=== PATIENT | female | born 1985 | race Caucasian/White ===

== ENCOUNTER 2021-09-06 08:24 | Day surgery (SDC) | payer MEDICAID ==
[~2021-09-06] VITALS: Ht 157.5 cm; Wt 77.1 kg
[2021-09-06 09:53] LABS: HCG,QUAL RESULT NEGATIVE (NEGATIVE)
[2021-09-06] MEDS ORDERED: MIDAZOLAM HCL 2 MG/2 ML VIAL (VERSED) ONE (11:19)
[2021-09-06] MEDS ORDERED: NS IRRIG SOLN 1000 ML IR ONE (11:19)
[2021-09-06] MEDS ORDERED: PROPOFOL 200MG/ 20ML VIAL (DIPRIVAN) IV ONE (11:19)
[2021-09-06] MEDS ORDERED: LIDOCAINE 1% 10 MG/ML, 20 ML MDV ONE (11:19)
[2021-09-06] MEDS ORDERED: fentaNYL CITRATE/PF 100 MCG/2 ML AMP ONE (11:19)
[2021-09-06] MEDS ORDERED: LR 1,000 ML IV.SOLN IV ONE (11:19)
[2021-09-06] MEDS ORDERED: DEXAMETHASONE SOD PHOSPHATE 4 MG/ML VIAL ONE (11:19)
[2021-09-06] MEDS ORDERED: ONDANSETRON HCL 4 MG/2 ML VIAL ONE (11:19)
[2021-09-06] MEDS ORDERED: GLYCOPYRROLATE 0.2 MG/ML VIAL ONE (11:19)
[2021-09-06] MEDS ORDERED: SEVOFLURANE 15 MIN GAS INH ONE (11:19)
[2021-09-06] MEDS ORDERED: LR 1,000 ML IV SCH (12:00)
[2021-09-06] MEDS ORDERED: HYDROmorphone 1 MG/ML INJ. CARTRIDGE IVP PRN ×2 (12:00)
[2021-09-06] MEDS ORDERED: METOCLOPRAMIDE HCL 10 MG/2 ML VIAL IVP PRN (12:00)
[2021-09-06] MEDS ORDERED: MEPERIDINE HCL/PF 25 MG/ML DISP.SYRIN IVP PRN (12:00)
[2021-09-06] MEDS ORDERED: MIDAZOLAM HCL 2 MG/2 ML VIAL (VERSED) IVP PRN (12:00)
[2021-09-06 13:37] VITALS: BP_SYST 114
== END 2021-09-06 13:30 | disposition home or self-care (01) ==
LOC: SDS 08:24 → SMU 08:25 → SDS 13:30
PROVIDERS: ATTEND Obstetrics & Gynecology
DX: T83.31XA Breakdown (mechanical) of intrauterine contraceptive device, initial encounter (principal); Z79.899 Other long term (current) drug therapy; Z20.822 Contact with and (suspected) exposure to COVID-19; Y82.8 Other medical devices associated with adverse incidents
CPT/HCPCS: 36415 ×2; 58562; 84703; 87426; 87635; J1100; J2001; J2405; J2704; J3010; J3465; J3490; J7120; U0003

== ENCOUNTER 2022-07-27 08:00 | Outpatient (CLI) | payer BC, MEDICAID ==
[~2022-07-27] VITALS: Ht 154.9 cm; Wt 83.9 kg
== END 2022-07-27 14:00 | disposition home or self-care (01) ==
LOC: SLB 08:00 → EDSTATUS 08-02 11:30
PROVIDERS: ATTEND Obstetrics & Gynecology
DX: Z30.2 Encounter for sterilization (principal)
CPT/HCPCS: 87081